=== PATIENT | male | born 1970 | race Caucasian/White ===

== ENCOUNTER 2024-04-21 08:53 | Emergency (ER) | payer OTHER | END 2024-04-21 11:35 | disposition home or self-care (01) | LOC: JP.ED 08:53 | DX: S06.0X9A Concussion with loss of consciousness of unspecified duration, initial encounter (principal); Z79.899 Other long term (current) drug therapy; W11.XXXA Fall on and from ladder, initial encounter | CPT/HCPCS: 99283 ==